=== PATIENT | male | born 1935 | race Caucasian/White ===

== ENCOUNTER 2017-06-14 22:27 | Emergency (ER) | payer MEDICARE, MEDICAID ==
[~2017-06-14] VITALS: Ht 167.6 cm; Wt 77.5 kg
[~2017-06-14 22:27] MED LIST: ASPI-611 PO; BACL20TA PO; LISI-600 PO; MULT-1085 PO; OMEP20CA10 PO; PROP20TA6 PO; ROSU10TA PO; SITA100T11 PO; TRAM50TA2 PO
[2017-06-15 01:22] VITALS: BP 125/81
== END 2017-06-15 01:24 | disposition home or self-care (01) ==
LOC: ER 22:27
DX: T82.837A Hemorrhage due to cardiac prosthetic devices, implants and grafts, initial encounter (principal); I25.10 Atherosclerotic heart disease of native coronary artery without angina pectoris; I25.2 Old myocardial infarction; Z95.0 Presence of cardiac pacemaker; Z95.1 Presence of aortocoronary bypass graft; Z79.899 Other long term (current) drug therapy
CPT/HCPCS: 93005; 99283; A4565; A6255; A6449

== ENCOUNTER 2017-07-23 12:51 | Observation (INO) | payer MEDICARE, MEDICAID ==
[~2017-07-23] VITALS: Ht 167.6 cm; Wt 84.0 kg
[2017-07-23 14:10] LABS: BASOPHILS % (AUTO) 0.6 % (0-1); EOSINOPHILS # (AUTO) 0.2 X10'3 (0-0.9); EOSINOPHILS % (AUTO) 3.1 % (0-6); HEMOGLOBIN 7.6 g/dl (14.0-17.9); LYMPHOCYTES % (AUTO) 14.5 % (21-51); MEAN CORPUSCULAR HEMOGLOBIN 30.9 PG (27.0-31.0); MEAN CORPUSCULAR HGB CONC 34.7 % (33.0-36.5); MEAN PLATELET VOLUME 7.6 FL (7.4-10.4); MONOCYTES # (AUTO) 0.4 X10'3 (0-0.9); MONOCYTES % (AUTO) 6.2 % (2-12); NEUTROPHILS # (AUTO) 5.2 X10'3 (1.8-7.7); NEUTROPHILS % (AUTO) 75.6 % (42-75); PLATELET COUNT 220 X10'3 (140-440); RED BLOOD COUNT 2.45 X10'6 (4.70-6.10); RED CELL DISTRIBUTION WIDTH 15.3 % (11.5-14.5); WHITE BLOOD COUNT 6.9 X10'3 (4.5-11.0)
[2017-07-23 14:14] LABS: HEMATOCRIT 21.8 % (42.0-52.0)
[2017-07-23 14:20] LABS: INR 1.2 INR; PARTIAL THROMBOPLASTIN TIME 29 SECONDS (22-32)
[2017-07-23 14:25] LABS: ALANINE AMINOTRANSFERASE 29 U/L (12-78); ALBUMIN 3.1 G/DL (3.4-5.0); ALBUMIN/GLOBULIN RATIO 0.8 (1.1-1.5); ALKALINE PHOSPHATASE 170 IU/L (46-116); ANION GAP 16 (8-16); ASPARTATE AMINO TRANSFERASE 62 U/L (10-37); BILIRUBIN,TOTAL 0.4 MG/DL (0.1-1.0); BLOOD UREA NITROGEN 73 MG/DL (7-18); BUN/CREATININE RATIO 29.8 (5.4-32.0); CALCIUM 9.6 MG/DL (8.5-10.1); CHLORIDE 111 MMOL/L (99-107); CREATININE 2.45 MG/DL (0.60-1.10); GLUCOSE 140 MG/DL (70-104); POTASSIUM 3.9 MMOL/L (3.5-5.1); SODIUM 147 MMOL/L (135-145); TOTAL CARBON DIOXIDE 20.2 MMOL/L (24-32); TOTAL PROTEIN 7.2 G/DL (6.4-8.2); eGFR 25 ML/MIN
[2017-07-23] MEDS ORDERED: ondansetron/PF 4mg/2ml inj IV PRN (15:45)
[2017-07-23] MEDS ORDERED: magnesium hydroxide 30ml (MOM) UD suspension PO PRN ×2 (15:45→16:30)
[2017-07-23] MEDS ORDERED: acetaminophen 325mg tablet PO PRN ×2 (15:45→16:30)
[2017-07-23] MEDS ORDERED: mag hydrox/Alum hydrox/simeth 30ml oral suspension PO PRN ×2 (15:45→16:30)
[2017-07-23] MEDS ORDERED: PEG 3350/Na sulf,bicarb,Cl/KCl oral sol 4 liter bottle PO ONE ×2 (16:35→18:25)
[2017-07-23 17:21] LABS: OCCULT BLOOD STOOL POSITIVE (Neg)
[2017-07-23] MEDS: PEG 3350/Na sulf,bicarb,Cl/KCl oral sol 4 liter bottle PO SCH (19:05)
[2017-07-23] MEDS: normal saline 1000ml 1,000 ML IV SCH ×2 (19:06→23:10)
[2017-07-23] MEDS ORDERED: PROP10TA10 PO (20:21)
[2017-07-23] MEDS: pantoprazole 40 MG vial IV SCH (20:56)
[2017-07-23] MEDS: traMADol 50MG tablet PO SCH (20:57)
[2017-07-23 22:45] VITALS: BP 155/75
[2017-07-23] MEDS: propranolol 10mg tablet PO SCH (22:52)
[2017-07-24] VITALS (13 sets, daily range): BP systolic 137–184; BP diastolic 48–93
[2017-07-24] MEDS: ondansetron/PF 4mg/2ml inj IV PRN ×2 (04:46→16:18)
[2017-07-24] MEDS: normal saline 1000ml 1,000 ML IV SCH ×3 (04:46→21:55)
[2017-07-24 06:00] LABS: BASOPHILS % (AUTO) 0.2 % (0-1); EOSINOPHILS # (AUTO) 0.1 X10'3 (0-0.9); LYMPHOCYTES # (AUTO) 0.7 X10'3 (1.1-4.8); LYMPHOCYTES % (AUTO) 11.1 % (21-51); MEAN CORPUSCULAR HEMOGLOBIN 31.1 PG (27.0-31.0); MEAN CORPUSCULAR HGB CONC 34.2 % (33.0-36.5); MEAN CORPUSCULAR VOLUME 90.8 FL (78-98); MEAN PLATELET VOLUME 7.1 FL (7.4-10.4); MONOCYTES # (AUTO) 0.3 X10'3 (0-0.9); MONOCYTES % (AUTO) 5.7 % (2-12); NEUTROPHILS # (AUTO) 4.8 X10'3 (1.8-7.7); PLATELET COUNT 166 X10'3 (140-440); RED BLOOD COUNT 2.07 X10'6 (4.70-6.10); RED CELL DISTRIBUTION WIDTH 15.5 % (11.5-14.5); WHITE BLOOD COUNT 5.9 X10'3 (4.5-11.0)
[2017-07-24 06:15] LABS: HEMATOCRIT 18.8 % (42.0-52.0); HEMOGLOBIN 6.4 g/dl (14.0-17.9)
[2017-07-24 06:19] LABS: ALBUMIN 2.6 G/DL (3.4-5.0); ANION GAP 17 (8-16); BLOOD UREA NITROGEN 61 MG/DL (7-18); BUN/CREATININE RATIO 32.4 (5.4-32.0); CHLORIDE 113 MMOL/L (99-107); CREATININE 1.88 MG/DL (0.60-1.10); GLUCOSE 158 MG/DL (70-104); POTASSIUM 3.7 MMOL/L (3.5-5.1); SODIUM 148 MMOL/L (135-145); TOTAL CARBON DIOXIDE 18.5 MMOL/L (24-32); eGFR 35 ML/MIN
[2017-07-24] MEDS ORDERED: pantoprazole 40mg Tablet.DR PO SCH (08:00)
[2017-07-24] MEDS: aspirin 81mg tablet.DR PO SCH (08:00)
[2017-07-24] MEDS ORDERED: PROPRANOLOL HCL PO SCH (08:00)
[2017-07-24] MEDS: lisinopril 20mg tablet PO SCH (08:10)
[2017-07-24] MEDS: traMADol 50MG tablet PO SCH ×2 (08:10→20:11)
[2017-07-24] MEDS: pantoprazole 40 MG vial IV SCH ×2 (08:10→20:11)
[2017-07-24] MEDS: propranolol 10mg tablet PO SCH ×3 (08:11→20:11)
[2017-07-24] MEDS: atorvastatin 20mg tablet PO SCH (08:11)
[2017-07-24] MEDS: PEG 3350/Na sulf,bicarb,Cl/KCl oral sol 4 liter bottle PO SCH (08:13)
[2017-07-24] MEDS: baclofen 10mg tablet PO SCH (08:13)
[2017-07-24] MEDS: multivitamins, therapeutics tablet PO SCH (08:13)
[2017-07-24] MEDS ORDERED: RANI300T4 (08:40)
[2017-07-24] MEDS ORDERED: OMEP-50 (08:40)
[2017-07-24] MEDS ORDERED: FURO20TA4 (08:42)
[2017-07-24] MEDS ORDERED: OFLO5DRO3 (08:42)
[2017-07-24] MEDS ORDERED: AZEL205. (08:42)
[2017-07-24] MEDS ORDERED: normal saline 1000ml 1,000 ML IV SCH (12:18)
[2017-07-24] MEDS ORDERED: simethicone 40mg/0.6ml oral drops 30ml MC ONE (12:20)
[2017-07-24] MEDS ORDERED: fentaNYL/PF 50MCG/1 ML 2ML syringe IV PRN (12:20)
[2017-07-24] MEDS ORDERED: MIDAZolam 5mg/5ml vial IV PRN (12:20)
[2017-07-24] MEDS ORDERED: fentaNYL/PF 50MCG/1 ML 2ML syringe ONE (14:17)
[2017-07-24] MEDS ORDERED: MIDAZolam 5mg/5ml vial ONE (14:17)
[2017-07-24] MEDS ORDERED: LIDOcaine Viscous 15ml cup ONE (15:29)
[2017-07-24] MEDS ORDERED: ondansetron/PF 4mg/2ml inj ONE (16:13)
[2017-07-24 18:58] LABS: % IRON SATURATION 29 % (11-46); IRON 64 UG/DL (53-167); TOTAL IRON BINDING CAPACITY 222 UG/DL (259-388)
[2017-07-25] VITALS: BP 121/49
[2017-07-25 05:29] LABS: BASOPHILS % (AUTO) 0.2 % (0-1); EOSINOPHILS # (AUTO) 0.1 X10'3 (0-0.9); EOSINOPHILS % (AUTO) 1.2 % (0-6); LYMPHOCYTES # (AUTO) 0.7 X10'3 (1.1-4.8); MEAN CORPUSCULAR HEMOGLOBIN 30.6 PG (27.0-31.0); MEAN CORPUSCULAR HGB CONC 34.2 % (33.0-36.5); MEAN CORPUSCULAR VOLUME 89.5 FL (78-98); MEAN PLATELET VOLUME 7.3 FL (7.4-10.4); MONOCYTES # (AUTO) 0.4 X10'3 (0-0.9); MONOCYTES % (AUTO) 7.4 % (2-12); NEUTROPHILS % (AUTO) 78.2 % (42-75); PLATELET COUNT 135 X10'3 (140-440); RED BLOOD COUNT 1.96 X10'6 (4.70-6.10); RED CELL DISTRIBUTION WIDTH 15.3 % (11.5-14.5); WHITE BLOOD COUNT 5.1 X10'3 (4.5-11.0)
[2017-07-25 05:49] LABS: ALBUMIN 2.5 G/DL (3.4-5.0); ANION GAP 14 (8-16); BLOOD UREA NITROGEN 51 MG/DL (7-18); BUN/CREATININE RATIO 29.7 (5.4-32.0); CALCIUM 8.5 MG/DL (8.5-10.1); CHLORIDE 114 MMOL/L (99-107); CREATININE 1.72 MG/DL (0.60-1.10); GLUCOSE 118 MG/DL (70-104); POTASSIUM 3.4 MMOL/L (3.5-5.1); SODIUM 148 MMOL/L (135-145); TOTAL CARBON DIOXIDE 19.8 MMOL/L (24-32); eGFR 38 ML/MIN
[2017-07-25 05:50] LABS: HEMATOCRIT 17.5 % (42.0-52.0)
[2017-07-25 07:00] VITALS: BP 144/61
[2017-07-25 08:00] VITALS: BP_SYST 120; BP_SYST 129; BP_SYST 144; BP_DIAS 55; BP_DIAS 57; BP_DIAS 61
[2017-07-25] MEDS: aspirin 81mg tablet.DR PO SCH (08:00)
[2017-07-25] MEDS: pantoprazole 40 MG vial IV SCH (08:34)
[2017-07-25] MEDS: baclofen 10mg tablet PO SCH (08:37)
[2017-07-25] MEDS: lisinopril 20mg tablet PO SCH (08:37)
[2017-07-25] MEDS: multivitamins, therapeutics tablet PO SCH (08:38)
[2017-07-25] MEDS: atorvastatin 20mg tablet PO SCH (08:38)
[2017-07-25] MEDS: traMADol 50MG tablet PO SCH (08:38)
[2017-07-25] MEDS: propranolol 10mg tablet PO SCH ×2 (08:40→13:00)
[2017-07-25] MEDS: normal saline 1000ml 1,000 ML IV SCH (08:45)
[2017-07-25 12:00] VITALS: BP 129/55
[2017-07-25] MEDS ORDERED: epoetin 20,000 units/ml inj SQ ONE (12:30)
[2017-07-25] MEDS ORDERED: EPOE10003 SQ (15:06)
[2017-07-25] MEDS ORDERED: FERR324T7 PO (15:06)
[2017-07-25] MEDS ORDERED: PANT-47 PO (15:06)
== END 2017-07-25 16:17 | disposition home or self-care (01) ==
LOC: ER 12:52 → ED HOLD 15:45 → SUR 3N 22:20
PROVIDERS: ADMIT Internal Medicine; ATTEND Internal Medicine
DX: K92.2 Gastrointestinal hemorrhage, unspecified (principal); D64.9 Anemia, unspecified; D50.0 Iron deficiency anemia secondary to blood loss (chronic); E78.5 Hyperlipidemia, unspecified; E86.0 Dehydration; I12.9 Hypertensive chronic kidney disease with stage 1 through stage 4 chronic kidney disease, or unspecified chronic kidney disease; E11.22 Type 2 diabetes mellitus with diabetic chronic kidney disease; N18.3 Chronic kidney disease, stage 3 (moderate); N17.9 Acute kidney failure, unspecified; I25.10 Atherosclerotic heart disease of native coronary artery without angina pectoris; I25.2 Old myocardial infarction; K63.5 Polyp of colon; K44.9 Diaphragmatic hernia without obstruction or gangrene; Z95.0 Presence of cardiac pacemaker; Z95.1 Presence of aortocoronary bypass graft; Z85.038 Personal history of other malignant neoplasm of large intestine; Z79.82 Long term (current) use of aspirin
CPT/HCPCS: 36415; 43255; 45378; 80048; 80053; 82272; 83036; 83540; 83550; 85025; 85610; 85730; 87070; 96372; 96374; 96375; 96376; 99285; C9113; G0378; J0885; J2250; J2405; J3010; J7030; 45382; A4620; G0500

== ENCOUNTER 2017-07-27 14:31 | Emergency (ER) | payer MEDICARE, MEDICAID ==
[~2017-07-27] VITALS: Ht 182.9 cm; Wt 90.0 kg
[~2017-07-27 14:31] MED LIST changes: -ASPI-611 PO; +EPOE10003 SQ; +FERR324T7 PO; -OMEP20CA10 PO; +PANT-47 PO; +PROP10TA10 PO; -PROP20TA6 PO; -SITA100T11 PO; -TRAM50TA2 PO
[2017-07-27 15:21] LABS: BASOPHILS % (AUTO) 0.3 % (0-1); EOSINOPHILS # (AUTO) 0.2 X10'3 (0-0.9); EOSINOPHILS % (AUTO) 2.6 % (0-6); LYMPHOCYTES # (AUTO) 0.7 X10'3 (1.1-4.8); LYMPHOCYTES % (AUTO) 11.7 % (21-51); MEAN CORPUSCULAR HEMOGLOBIN 28.5 PG (27.0-31.0); MEAN CORPUSCULAR HGB CONC 33.4 % (33.0-36.5); MEAN CORPUSCULAR VOLUME 85.5 FL (78-98); MEAN PLATELET VOLUME 7.3 FL (7.4-10.4); MONOCYTES # (AUTO) 0.4 X10'3 (0-0.9); NEUTROPHILS # (AUTO) 4.8 X10'3 (1.8-7.7); NEUTROPHILS % (AUTO) 78.4 % (42-75); PLATELET COUNT 154 X10'3 (140-440); RED CELL DISTRIBUTION WIDTH 16.1 % (11.5-14.5); WHITE BLOOD COUNT 6.2 X10'3 (4.5-11.0)
[2017-07-27 15:23] LABS: HEMATOCRIT 20.5 % (42.0-52.0); HEMOGLOBIN 6.9 g/dl (14.0-17.9)
[2017-07-27] MEDS ORDERED: epoetin 20,000 units/ml inj SQ ONE (16:00)
[2017-07-27 17:18] VITALS: BP 144/73
[2017-07-27 17:54] LABS: OCCULT BLOOD STOOL NEGATIVE (Neg)
== END 2017-07-27 17:28 | disposition home or self-care (01) ==
LOC: ER 14:31
DX: D64.9 Anemia, unspecified (principal); I25.10 Atherosclerotic heart disease of native coronary artery without angina pectoris; I25.2 Old myocardial infarction; N18.9 Chronic kidney disease, unspecified; Z95.1 Presence of aortocoronary bypass graft; Z95.0 Presence of cardiac pacemaker; Z79.899 Other long term (current) drug therapy
CPT/HCPCS: 36415; 82272; 85025; 96372; 99284; J0885

== ENCOUNTER 2017-07-29 16:09 | Emergency (ER) | payer MEDICARE, MEDICAID ==
[~2017-07-29] VITALS: Ht 167.6 cm; Wt 85.2 kg
[2017-07-29 16:12] VITALS: BP 146/68
[2017-07-29] MEDS ORDERED: epoetin 20,000 units/ml inj SQ ONE (16:20)
== END 2017-07-29 17:15 | disposition home or self-care (01) ==
LOC: ER 16:10
DX: Z23 Encounter for immunization (principal); I25.10 Atherosclerotic heart disease of native coronary artery without angina pectoris; I25.2 Old myocardial infarction; N18.9 Chronic kidney disease, unspecified; Z95.1 Presence of aortocoronary bypass graft; Z95.0 Presence of cardiac pacemaker; Z79.899 Other long term (current) drug therapy; Z85.038 Personal history of other malignant neoplasm of large intestine
CPT/HCPCS: 96372; 99283; J0885

== ENCOUNTER 2017-08-23 17:49 | Inpatient (IN) | payer MEDICARE, MEDICAID ==
[~2017-08-23] VITALS: Ht 172.7 cm; Wt 79.5 kg
[2017-08-23 19:25] LABS: BASOPHILS % (AUTO) 0.2 % (0-1); EOSINOPHILS % (AUTO) 0.6 % (0-6); LYMPHOCYTES # (AUTO) 0.5 X10'3 (1.1-4.8); LYMPHOCYTES % (AUTO) 10.6 % (21-51); MEAN CORPUSCULAR HEMOGLOBIN 28.3 PG (27.0-31.0); MEAN CORPUSCULAR HGB CONC 32.9 % (33.0-36.5); MEAN PLATELET VOLUME 7.3 FL (7.4-10.4); MONOCYTES # (AUTO) 0.4 X10'3 (0-0.9); MONOCYTES % (AUTO) 8.1 % (2-12); NEUTROPHILS # (AUTO) 3.5 X10'3 (1.8-7.7); NEUTROPHILS % (AUTO) 80.5 % (42-75); PLATELET COUNT 136 X10'3 (140-440); RED BLOOD COUNT 2.16 X10'6 (4.70-6.10); RED CELL DISTRIBUTION WIDTH 18.8 % (11.5-14.5); WHITE BLOOD COUNT 4.4 X10'3 (4.5-11.0)
[2017-08-23 19:31] LABS: HEMATOCRIT 18.6 % (42.0-52.0); HEMOGLOBIN 6.1 g/dl (14.0-17.9)
[2017-08-23 19:32] LABS: INR 1.3 INR; PROTHROMBIN TIME 13.3 SECONDS (9.0-12.0)
[2017-08-23 19:36] LABS: ALANINE AMINOTRANSFERASE 17 U/L (12-78); ALBUMIN 2.6 G/DL (3.4-5.0); ALBUMIN/GLOBULIN RATIO 0.7 (1.1-1.5); ALKALINE PHOSPHATASE 221 IU/L (46-116); ANION GAP 16 (8-16); ASPARTATE AMINO TRANSFERASE 95 U/L (10-37); BILIRUBIN,TOTAL 0.6 MG/DL (0.1-1.0); BLOOD UREA NITROGEN 48 MG/DL (7-18); BUN/CREATININE RATIO 22.3 (5.4-32.0); CALCIUM 8.9 MG/DL (8.5-10.1); CHLORIDE 103 MMOL/L (99-107); CREATININE 2.15 MG/DL (0.60-1.10); GLUCOSE 176 MG/DL (70-104); POTASSIUM 3.4 MMOL/L (3.5-5.1); SODIUM 141 MMOL/L (135-145); TOTAL PROTEIN 6.3 G/DL (6.4-8.2); eGFR 30 ML/MIN
[2017-08-23 20:06] LABS: CLARITY,URINE Clear (Clear); COLOR,URINE Yellow (Yellow); GLUCOSE, URINE Negative (Neg); KETONES,URINE Trace mg/dl (Neg); LEUKOCYTE ESTERASE ,URINE Negative (Neg); NITRITES, URINE Negative (Neg); OCCULT BLOOD,URINE Negative (Neg); PROTEIN,URINE 100 mg/dl (Neg); UROBILINOGEN,URINE 0.2 E.U/dL (0.2-1.0)
[2017-08-23 20:11] LABS: UA COLLECTION TYPE CLN CATCH MIDSTREAM
[2017-08-23 20:20] LABS: BACTERIA,URINE NONE SEEN /HPF (Neg); RBC,URINE NONE SEEN /HPF (0-2); SQUAMOUS EPITHELIAL CELL,UR FEW /LPF (FEW); WBC,URINE NONE SEEN /HPF (0-4)
[2017-08-23 22:13] LABS: PLATELET ESTIMATE DECREASED
[2017-08-23 22:14] LABS: ANISOCYTOSIS 2+
[2017-08-23 22:18] LABS: POIKILOCYTOSIS FEW
[2017-08-23 22:19] LABS: POLYCHROMASIA FEW
[2017-08-23] MEDS ORDERED: ondansetron/PF 4mg/2ml inj IV ONE (22:25)
[2017-08-23] MEDS ORDERED: ASPI-611 PO (22:27)
[2017-08-23] MEDS ORDERED: OMEP20CA10 PO (22:27)
[2017-08-23] MEDS ORDERED: FURO-150 PO (22:27)
[2017-08-23] MEDS ORDERED: RANI300C PO (22:27)
[2017-08-23] MEDS ORDERED: PROP40TA72 PO (22:27)
[2017-08-23] MEDS ORDERED: ondansetron/PF 4mg/2ml inj IV PRN (23:50)
[2017-08-23] MEDS ORDERED: bisacodyl 10mg suppository rectal RC PRN (23:50)
[2017-08-23] MEDS ORDERED: acetaminophen 325mg tablet PO PRN (23:50)
[2017-08-24] VITALS (12 sets, daily range): BP systolic 116–145; BP diastolic 49–77
[2017-08-24] MEDS: propranolol 40mg tablet PO SCH ×3 (01:00→20:54)
[2017-08-24] MEDS: normal saline 1000ml 1,000 ML IV SCH ×2 (02:16→17:48)
[2017-08-24] MEDS: pantoprazole 40MG/NS 100ML BAG 100 ML IV SCH ×5 (02:16→22:26)
[2017-08-24 05:13] LABS: ALANINE AMINOTRANSFERASE 16 U/L (12-78); ALBUMIN 2.4 G/DL (3.4-5.0); ALBUMIN/GLOBULIN RATIO 0.6 (1.1-1.5); ALKALINE PHOSPHATASE 200 IU/L (46-116); ANION GAP 15 (8-16); ASPARTATE AMINO TRANSFERASE 74 U/L (10-37); BILIRUBIN,TOTAL 0.5 MG/DL (0.1-1.0); BLOOD UREA NITROGEN 42 MG/DL (7-18); BUN/CREATININE RATIO 23.3 (5.4-32.0); CALCIUM 8.9 MG/DL (8.5-10.1); CHLORIDE 105 MMOL/L (99-107); GLUCOSE 142 MG/DL (70-104); MAGNESIUM 1.6 MG/DL (1.5-2.4); POTASSIUM 3.2 MMOL/L (3.5-5.1); SODIUM 143 MMOL/L (135-145); TOTAL CARBON DIOXIDE 23.4 MMOL/L (24-32); TOTAL PROTEIN 6.1 G/DL (6.4-8.2); eGFR 36 ML/MIN
[2017-08-24 05:34] LABS: BASOPHILS % (AUTO) 0.1 % (0-1); EOSINOPHILS % (AUTO) 0.3 % (0-6); LYMPHOCYTES # (AUTO) 0.5 X10'3 (1.1-4.8); LYMPHOCYTES % (AUTO) 10.5 % (21-51); MEAN CORPUSCULAR HEMOGLOBIN 28.1 PG (27.0-31.0); MEAN CORPUSCULAR HGB CONC 32.9 % (33.0-36.5); MEAN CORPUSCULAR VOLUME 85.6 FL (78-98); MEAN PLATELET VOLUME 7.8 FL (7.4-10.4); MONOCYTES # (AUTO) 0.3 X10'3 (0-0.9); MONOCYTES % (AUTO) 7.7 % (2-12); NEUTROPHILS # (AUTO) 3.5 X10'3 (1.8-7.7); NEUTROPHILS % (AUTO) 81.4 % (42-75); PLATELET COUNT 143 X10'3 (140-440); RED BLOOD COUNT 2.19 X10'6 (4.70-6.10); RED CELL DISTRIBUTION WIDTH 18.1 % (11.5-14.5); WHITE BLOOD COUNT 4.3 X10'3 (4.5-11.0)
[2017-08-24 05:40] LABS: HEMOGLOBIN 6.2 g/dl (14.0-17.9)
[2017-08-24 05:41] LABS: HEMATOCRIT 18.8 % (42.0-52.0)
[2017-08-24 06:56] LABS: OCCULT BLOOD STOOL POSITIVE (Neg)
[2017-08-24] MEDS: ferrous gluconate 324mg tablet PO SCH ×2 (07:38→11:34)
[2017-08-24] MEDS: baclofen 10mg tablet PO SCH (07:38)
[2017-08-24] MEDS: atorvastatin 20mg tablet PO SCH (07:39)
[2017-08-24] MEDS: lisinopril 20mg tablet PO SCH (07:40)
[2017-08-24] MEDS: docusate sod 100mg capsule PO SCH ×2 (07:40→20:54)
[2017-08-24] MEDS: multivitamins, therapeutics tablet PO SCH (07:41)
[2017-08-24] MEDS ORDERED: aspirin 81mg tablet.DR PO SCH (08:00)
[2017-08-24] MEDS ORDERED: propranolol 40mg tablet PO SCH (08:00)
[2017-08-24] MEDS ORDERED: furosemide 20MG tablet PO SCH (08:00)
[2017-08-24] MEDS ORDERED: potassium Cl 20mEq in NS 1,000 ML IV SCH (08:23)
[2017-08-24] MEDS ORDERED: potassium Cl 20 mEq SR tablet PO PRN (08:25)
[2017-08-24] MEDS ORDERED: potassium Cl 40MEQ/NS 500ml 500 ML IV PRN ×2 (08:25)
[2017-08-24] MEDS: K and/or MAG REPLACEMENT MC SCH (08:25)
[2017-08-24] MEDS ORDERED: Potassium Cl inj 20 MEQ in normal saline 1000ml 990 ML IV SCH (08:30)
[2017-08-24] MEDS: potassium Cl 20 mEq SR tablet PO PRN ×3 (08:36→17:47)
[2017-08-24 09:05] LABS: LIPASE 88 U/L (73-393)
[2017-08-24 09:13] LABS: TOTAL CELLS COUNTED 100
[2017-08-24 09:14] LABS: ANISOCYTOSIS 2+; PLATELET ESTIMATE NORMAL
[2017-08-24] MEDS ORDERED: LIDOcaine Viscous 15ml cup ONE (09:48)
[2017-08-24] MEDS ORDERED: fentaNYL/PF 50MCG/1 ML 2ML syringe ONE (09:48)
[2017-08-24] MEDS ORDERED: MIDAZolam 5mg/5ml vial ONE (09:48)
[2017-08-24] MEDS ORDERED: iron dextran complex inj. 100 MG in normal saline 100ml IV soln 98 ML IV SCH (12:50)
[2017-08-24] MEDS ORDERED: epoetin 20,000 units/ml inj SQ ONE (12:55)
[2017-08-24] MEDS ORDERED: cyanocobalamin 1,000 mcg/ml inj IM ONE (13:00)
[2017-08-24 13:48] LABS: BASOPHILS % (AUTO) 0.2 % (0-1); EOSINOPHILS # (AUTO) 0.1 X10'3 (0-0.9); EOSINOPHILS % (AUTO) 1.9 % (0-6); LYMPHOCYTES # (AUTO) 0.5 X10'3 (1.1-4.8); LYMPHOCYTES % (AUTO) 11.1 % (21-51); MEAN CORPUSCULAR HEMOGLOBIN 31.3 PG (27.0-31.0); MEAN CORPUSCULAR HGB CONC 34.9 % (33.0-36.5); MEAN CORPUSCULAR VOLUME 89.4 FL (78-98); MEAN PLATELET VOLUME 7.6 FL (7.4-10.4); MONOCYTES # (AUTO) 0.3 X10'3 (0-0.9); MONOCYTES % (AUTO) 7.5 % (2-12); NEUTROPHILS # (AUTO) 3.5 X10'3 (1.8-7.7); NEUTROPHILS % (AUTO) 79.3 % (42-75); PLATELET COUNT 162 X10'3 (140-440); RED BLOOD COUNT 2.06 X10'6 (4.70-6.10); RED CELL DISTRIBUTION WIDTH 19.1 % (11.5-14.5); WHITE BLOOD COUNT 4.4 X10'3 (4.5-11.0)
[2017-08-24] MEDS: folic acid 1mg/0.2ml inj IV SCH (13:54)
[2017-08-24 13:56] LABS: HEMATOCRIT 18.4 % (42.0-52.0); HEMOGLOBIN 6.4 g/dl (14.0-17.9)
[2017-08-24] MEDS: sodium ferric gluc complex inj 125 MG in normal saline 100ml IV soln 100 ML IV SCH (14:17)
[2017-08-24] MEDS: magnesium oxide 400mg tablet PO SCH (17:47)
[2017-08-24] MEDS ORDERED: temazepam 15mg capsule PO ONE (23:25)
[2017-08-25] VITALS: BP 150/73
[2017-08-25] MEDS: magnesium oxide 400mg tablet PO SCH ×3 (00:59→16:57)
[2017-08-25] MEDS: pantoprazole 40MG/NS 100ML BAG 100 ML IV SCH ×4 (03:36→16:58)
[2017-08-25 04:00] VITALS: BP 99/51
[2017-08-25 06:38] LABS: ALANINE AMINOTRANSFERASE 21 U/L (12-78); ALBUMIN 2.4 G/DL (3.4-5.0); ALBUMIN/GLOBULIN RATIO 0.6 (1.1-1.5); ALKALINE PHOSPHATASE 186 IU/L (46-116); ANION GAP 14 (8-16); ASPARTATE AMINO TRANSFERASE 49 U/L (10-37); BILIRUBIN,TOTAL 0.4 MG/DL (0.1-1.0); BLOOD UREA NITROGEN 36 MG/DL (7-18); BUN/CREATININE RATIO 20.7 (5.4-32.0); CALCIUM 8.8 MG/DL (8.5-10.1); CHLORIDE 107 MMOL/L (99-107); CREATININE 1.74 MG/DL (0.60-1.10); GLUCOSE 131 MG/DL (70-104); MAGNESIUM 1.6 MG/DL (1.5-2.4); SODIUM 141 MMOL/L (135-145); TOTAL PROTEIN 6.2 G/DL (6.4-8.2); eGFR 38 ML/MIN
[2017-08-25 07:14] LABS: BASOPHILS % (AUTO) 0.4 % (0-1); EOSINOPHILS # (AUTO) 0.1 X10'3 (0-0.9); EOSINOPHILS % (AUTO) 1.7 % (0-6); LYMPHOCYTES # (AUTO) 0.5 X10'3 (1.1-4.8); LYMPHOCYTES % (AUTO) 13.4 % (21-51); MEAN CORPUSCULAR HGB CONC 33.4 % (33.0-36.5); MEAN PLATELET VOLUME 7.4 FL (7.4-10.4); MONOCYTES # (AUTO) 0.3 X10'3 (0-0.9); MONOCYTES % (AUTO) 8.7 % (2-12); NEUTROPHILS # (AUTO) 2.7 X10'3 (1.8-7.7); NEUTROPHILS % (AUTO) 75.8 % (42-75); PLATELET COUNT 136 X10'3 (140-440); RED BLOOD COUNT 1.95 X10'6 (4.70-6.10); RED CELL DISTRIBUTION WIDTH 18.7 % (11.5-14.5); WHITE BLOOD COUNT 3.6 X10'3 (4.5-11.0)
[2017-08-25 07:24] LABS: HEMATOCRIT 16.4 % (42.0-52.0); HEMOGLOBIN 5.5 g/dl (14.0-17.9)
[2017-08-25] MEDS: lisinopril 20mg tablet PO SCH (07:47)
[2017-08-25] MEDS: baclofen 10mg tablet PO SCH (07:48)
[2017-08-25] MEDS: docusate sod 100mg capsule PO SCH ×2 (07:48→19:52)
[2017-08-25] MEDS: atorvastatin 20mg tablet PO SCH (07:48)
[2017-08-25] MEDS: multivitamins, therapeutics tablet PO SCH (07:48)
[2017-08-25] MEDS: propranolol 40mg tablet PO SCH ×2 (07:49→19:55)
[2017-08-25] MEDS: folic acid 1mg/0.2ml inj IV SCH (07:50)
[2017-08-25] MEDS ORDERED: normal saline 500ml IV soln 500 ML IV ONE (08:00)
[2017-08-25] MEDS: K and/or MAG REPLACEMENT MC SCH (08:00)
[2017-08-25 12:23] VITALS: BP 145/59
[2017-08-25] MEDS: sodium ferric gluc complex inj 125 MG in normal saline 100ml IV soln 100 ML IV SCH (12:42)
[2017-08-25 17:03] LABS: MEAN CORPUSCULAR HEMOGLOBIN 29.3 PG (27.0-31.0); MEAN CORPUSCULAR HGB CONC 33.7 % (33.0-36.5); MEAN PLATELET VOLUME 7.8 FL (7.4-10.4); PLATELET COUNT 154 X10'3 (140-440); RED BLOOD COUNT 2.07 X10'6 (4.70-6.10); RED CELL DISTRIBUTION WIDTH 18.9 % (11.5-14.5); WHITE BLOOD COUNT 4.6 X10'3 (4.5-11.0)
[2017-08-25 17:07] LABS: HEMOGLOBIN 6.1 g/dl (14.0-17.9)
[2017-08-25 18:11] LABS: CLARITY,URINE CLEAR (Clear); COLOR,URINE YELLOW (Yellow); GLUCOSE, URINE NEGATIVE (Neg); KETONES,URINE NEGATIVE (Neg); LEUKOCYTE ESTERASE ,URINE NEGATIVE (Neg); NITRITES, URINE NEGATIVE (Neg); OCCULT BLOOD,URINE NEGATIVE (Neg); PH,URINE 5.5 (4.8-8.0); PROTEIN,URINE TRACE mg/dl (Neg); UROBILINOGEN,URINE 0.2 E.U/dL (0.2-1.0)
[2017-08-25 18:13] LABS: UA COLLECTION TYPE CLN CATCH MIDSTREAM
[2017-08-25 19:14] LABS: BACTERIA,URINE NONE SEEN /HPF (Neg); MUCUS STRANDS MODERATE /LPF (Neg); RBC,URINE NONE SEEN /HPF (0-2); SQUAMOUS EPITHELIAL CELL,UR FEW /LPF (FEW); WBC,URINE 0-4 /HPF (0-4)
[2017-08-25] MEDS: normal saline 1000ml 1,000 ML IV SCH (19:52)
[2017-08-25 20:00] VITALS: BP 100/64
[2017-08-25] MEDS ORDERED: HYDROcodone/acetaminophen 5mg/325mg tablet PO ONE (22:05)
[2017-08-25] MEDS ORDERED: temazepam 15mg capsule PO ONE (23:45)
[2017-08-26] VITALS: BP 126/57
[2017-08-26] MEDS: magnesium oxide 400mg tablet PO SCH ×4 (00:25→20:52)
[2017-08-26] MEDS: pantoprazole 40MG/NS 100ML BAG 100 ML IV SCH ×6 (00:29→20:46)
[2017-08-26] MEDS: normal saline 1000ml 1,000 ML IV SCH ×3 (00:30→23:20)
[2017-08-26 07:10] LABS: BASOPHILS % (AUTO) 0.4 % (0-1); EOSINOPHILS # (AUTO) 0.1 X10'3 (0-0.9); EOSINOPHILS % (AUTO) 2.9 % (0-6); LYMPHOCYTES # (AUTO) 0.6 X10'3 (1.1-4.8); LYMPHOCYTES % (AUTO) 14.4 % (21-51); MEAN CORPUSCULAR HEMOGLOBIN 29.5 PG (27.0-31.0); MEAN CORPUSCULAR HGB CONC 33.5 % (33.0-36.5); MEAN CORPUSCULAR VOLUME 88.2 FL (78-98); MEAN PLATELET VOLUME 7.5 FL (7.4-10.4); MONOCYTES # (AUTO) 0.3 X10'3 (0-0.9); MONOCYTES % (AUTO) 7.4 % (2-12); NEUTROPHILS % (AUTO) 74.9 % (42-75); PLATELET COUNT 145 X10'3 (140-440); RED BLOOD COUNT 1.75 X10'6 (4.70-6.10); RED CELL DISTRIBUTION WIDTH 19.6 % (11.5-14.5)
[2017-08-26 07:22] LABS: HEMATOCRIT 15.4 % (42.0-52.0); HEMOGLOBIN 5.2 g/dl (14.0-17.9)
[2017-08-26 07:37] LABS: ALANINE AMINOTRANSFERASE 23 U/L (12-78); ALBUMIN 2.1 G/DL (3.4-5.0); ALBUMIN/GLOBULIN RATIO 0.7 (1.1-1.5); ALKALINE PHOSPHATASE 161 IU/L (46-116); ANION GAP 12 (8-16); ASPARTATE AMINO TRANSFERASE 45 U/L (10-37); BILIRUBIN,TOTAL 0.5 MG/DL (0.1-1.0); BLOOD UREA NITROGEN 34 MG/DL (7-18); BUN/CREATININE RATIO 18.9 (5.4-32.0); CALCIUM 8.4 MG/DL (8.5-10.1); CHLORIDE 107 MMOL/L (99-107); GLUCOSE 128 MG/DL (70-104); MAGNESIUM 1.4 MG/DL (1.5-2.4); POTASSIUM 4.1 MMOL/L (3.5-5.1); SODIUM 141 MMOL/L (135-145); TOTAL CARBON DIOXIDE 21.6 MMOL/L (24-32); TOTAL PROTEIN 5.3 G/DL (6.4-8.2); eGFR 36 ML/MIN
[2017-08-26] MEDS: K and/or MAG REPLACEMENT MC SCH (08:00)
[2017-08-26 08:04] VITALS: BP 150/73
[2017-08-26] MEDS: docusate sod 100mg capsule PO SCH ×2 (08:10→20:52)
[2017-08-26] MEDS: propranolol 40mg tablet PO SCH ×2 (08:10→20:52)
[2017-08-26] MEDS: baclofen 10mg tablet PO SCH (08:10)
[2017-08-26] MEDS: atorvastatin 20mg tablet PO SCH (08:10)
[2017-08-26] MEDS: lisinopril 20mg tablet PO SCH (08:10)
[2017-08-26] MEDS: folic acid 1mg/0.2ml inj IV SCH (08:10)
[2017-08-26] MEDS: multivitamins, therapeutics tablet PO SCH (08:10)
[2017-08-26] MEDS: sodium ferric gluc complex inj 125 MG in normal saline 100ml IV soln 100 ML IV SCH (08:43)
[2017-08-26] MEDS ORDERED: magnesium Cl slow-release 64mg tablet PO PRN (11:05)
[2017-08-26] MEDS ORDERED: magnesium 4gm in 100ml NS 100 ML IV PRN (11:05)
[2017-08-26] MEDS: magnesium/D5W IVPB 50 ML IV PRN ×2 (14:27→16:35)
[2017-08-26 15:55] VITALS: BP 123/69
[2017-08-26 19:30] VITALS: BP 136/65
[2017-08-26] MEDS ORDERED: temazepam 15mg capsule PO ONE (21:15)
[2017-08-26] MEDS ORDERED: HYDROcodone/acetaminophen 5mg/325mg tablet PO ONE (21:15)
[2017-08-26 23:00] VITALS: BP 134/74
[2017-08-27] MEDS: magnesium oxide 400mg tablet PO SCH ×5 (01:47→20:00)
[2017-08-27] MEDS: pantoprazole 40MG/NS 100ML BAG 100 ML IV SCH ×5 (01:59→21:33)
[2017-08-27] MEDS: normal saline 1000ml 1,000 ML IV SCH ×2 (05:40→21:29)
[2017-08-27 06:34] LABS: ALANINE AMINOTRANSFERASE 27 U/L (12-78); ALBUMIN 2.2 G/DL (3.4-5.0); ALBUMIN/GLOBULIN RATIO 0.7 (1.1-1.5); ALKALINE PHOSPHATASE 164 IU/L (46-116); ANION GAP 13 (8-16); ASPARTATE AMINO TRANSFERASE 76 U/L (10-37); BILIRUBIN,TOTAL 0.5 MG/DL (0.1-1.0); BLOOD UREA NITROGEN 32 MG/DL (7-18); BUN/CREATININE RATIO 20.3 (5.4-32.0); CALCIUM 8.3 MG/DL (8.5-10.1); CHLORIDE 107 MMOL/L (99-107); CREATININE 1.58 MG/DL (0.60-1.10); GLUCOSE 126 MG/DL (70-104); MAGNESIUM 2.7 MG/DL (1.5-2.4); POTASSIUM 4.4 MMOL/L (3.5-5.1); SODIUM 140 MMOL/L (135-145); TOTAL CARBON DIOXIDE 19.7 MMOL/L (24-32); TOTAL PROTEIN 5.4 G/DL (6.4-8.2); eGFR 42 ML/MIN
[2017-08-27 07:00] VITALS: BP 132/65
[2017-08-27 07:21] LABS: BASOPHILS % (AUTO) 0.3 % (0-1); EOSINOPHILS # (AUTO) 0.1 X10'3 (0-0.9); EOSINOPHILS % (AUTO) 2.9 % (0-6); LYMPHOCYTES # (AUTO) 0.6 X10'3 (1.1-4.8); MEAN CORPUSCULAR HEMOGLOBIN 28.3 PG (27.0-31.0); MEAN CORPUSCULAR HGB CONC 32.9 % (33.0-36.5); MEAN CORPUSCULAR VOLUME 85.8 FL (78-98); MEAN PLATELET VOLUME 7.1 FL (7.4-10.4); MONOCYTES # (AUTO) 0.3 X10'3 (0-0.9); MONOCYTES % (AUTO) 7.1 % (2-12); NEUTROPHILS # (AUTO) 3.6 X10'3 (1.8-7.7); NEUTROPHILS % (AUTO) 77.7 % (42-75); PLATELET COUNT 157 X10'3 (140-440); RED BLOOD COUNT 1.99 X10'6 (4.70-6.10); RED CELL DISTRIBUTION WIDTH 18.8 % (11.5-14.5); WHITE BLOOD COUNT 4.6 X10'3 (4.5-11.0)
[2017-08-27 07:24] LABS: HEMATOCRIT 17.1 % (42.0-52.0); HEMOGLOBIN 5.6 g/dl (14.0-17.9)
[2017-08-27 07:38] LABS: ANISOCYTOSIS 2+; PLATELET ESTIMATE NORMAL; POLYCHROMASIA 1+
[2017-08-27 07:39] LABS: ELLIPTOCYTES FEW; TEAR DROP CELLS FEW
[2017-08-27] MEDS: K and/or MAG REPLACEMENT MC SCH (08:00)
[2017-08-27] MEDS: propranolol 40mg tablet PO SCH ×2 (10:00→21:43)
[2017-08-27] MEDS: lisinopril 20mg tablet PO SCH (10:12)
[2017-08-27] MEDS: docusate sod 100mg capsule PO SCH ×2 (10:12→20:00)
[2017-08-27] MEDS: baclofen 10mg tablet PO SCH (10:12)
[2017-08-27] MEDS: atorvastatin 20mg tablet PO SCH (10:12)
[2017-08-27] MEDS: multivitamins, therapeutics tablet PO SCH (10:12)
[2017-08-27] MEDS: folic acid 1mg/0.2ml inj IV SCH (10:14)
[2017-08-27] MEDS ORDERED: magnesium hydroxide 30ml (MOM) UD suspension PO ONE (10:20)
[2017-08-27 11:00] VITALS: BP 115/52
[2017-08-27] MEDS: sodium ferric gluc complex inj 125 MG in normal saline 100ml IV soln 100 ML IV SCH (11:25)
[2017-08-27 19:00] VITALS: BP 144/68
[2017-08-27] MEDS: HYDROcodone/acetaminophen 5mg/325mg tablet PO PRN (21:43)
[2017-08-27] MEDS: temazepam 15mg capsule PO PRN (22:02)
[2017-08-28] VITALS: BP 103/46
[2017-08-28] MEDS: pantoprazole 40MG/NS 100ML BAG 100 ML IV SCH ×6 (01:00→22:41)
[2017-08-28] MEDS: normal saline 1000ml 1,000 ML IV SCH ×2 (04:12→17:28)
[2017-08-28 06:16] LABS: ALANINE AMINOTRANSFERASE 49 U/L (12-78); ALBUMIN 2.6 G/DL (3.4-5.0); ALBUMIN/GLOBULIN RATIO 0.7 (1.1-1.5); ALKALINE PHOSPHATASE 191 IU/L (46-116); ANION GAP 14 (8-16); ASPARTATE AMINO TRANSFERASE 98 U/L (10-37); BILIRUBIN,TOTAL 0.6 MG/DL (0.1-1.0); BLOOD UREA NITROGEN 35 MG/DL (7-18); BUN/CREATININE RATIO 21.1 (5.4-32.0); CALCIUM 8.9 MG/DL (8.5-10.1); CHLORIDE 107 MMOL/L (99-107); CREATININE 1.66 MG/DL (0.60-1.10); GLUCOSE 129 MG/DL (70-104); MAGNESIUM 2.6 MG/DL (1.5-2.4); POTASSIUM 4.6 MMOL/L (3.5-5.1); SODIUM 140 MMOL/L (135-145); TOTAL CARBON DIOXIDE 19.3 MMOL/L (24-32); TOTAL PROTEIN 6.2 G/DL (6.4-8.2); eGFR 40 ML/MIN
[2017-08-28] MEDS: magnesium oxide 400mg tablet PO SCH ×2 (07:22→20:00)
[2017-08-28] MEDS: K and/or MAG REPLACEMENT MC SCH (07:23)
[2017-08-28 07:36] VITALS: BP 136/69
[2017-08-28] MEDS: propranolol 40mg tablet PO SCH ×2 (07:40→20:15)
[2017-08-28] MEDS: baclofen 10mg tablet PO SCH (07:40)
[2017-08-28] MEDS: lisinopril 20mg tablet PO SCH (07:40)
[2017-08-28] MEDS: folic acid 1mg/0.2ml inj IV SCH (07:41)
[2017-08-28] MEDS: multivitamins, therapeutics tablet PO SCH (07:41)
[2017-08-28] MEDS: atorvastatin 20mg tablet PO SCH (07:42)
[2017-08-28] MEDS: docusate sod 100mg capsule PO SCH ×2 (07:45→20:00)
[2017-08-28 08:44] LABS: BASOPHILS % (AUTO) 0.5 % (0-1); EOSINOPHILS # (AUTO) 0.2 X10'3 (0-0.9); EOSINOPHILS % (AUTO) 3.3 % (0-6); LYMPHOCYTES # (AUTO) 0.6 X10'3 (1.1-4.8); LYMPHOCYTES % (AUTO) 10.3 % (21-51); MEAN CORPUSCULAR HEMOGLOBIN 32.2 PG (27.0-31.0); MEAN CORPUSCULAR HGB CONC 35.2 % (33.0-36.5); MEAN CORPUSCULAR VOLUME 91.6 FL (78-98); MEAN PLATELET VOLUME 7.6 FL (7.4-10.4); MONOCYTES # (AUTO) 0.4 X10'3 (0-0.9); MONOCYTES % (AUTO) 7.7 % (2-12); NEUTROPHILS # (AUTO) 4.6 X10'3 (1.8-7.7); NEUTROPHILS % (AUTO) 78.2 % (42-75); PLATELET COUNT 166 X10'3 (140-440); RED BLOOD COUNT 1.82 X10'6 (4.70-6.10); RED CELL DISTRIBUTION WIDTH 19.1 % (11.5-14.5); WHITE BLOOD COUNT 5.8 X10'3 (4.5-11.0)
[2017-08-28 08:57] LABS: HEMATOCRIT 16.6 % (42.0-52.0); HEMOGLOBIN 5.9 g/dl (14.0-17.9)
[2017-08-28] MEDS: sodium ferric gluc complex inj 125 MG in normal saline 100ml IV soln 100 ML IV SCH (09:03)
[2017-08-28 10:10] LABS: NUCLEATED RED BLOOD CELLS 4 /100WBC (0-0); PLATELET ESTIMATE NORMAL; TOTAL CELLS COUNTED 100
[2017-08-28 10:11] LABS: ANISOCYTOSIS 2+; ELLIPTOCYTES FEW; POLYCHROMASIA 2+; TEAR DROP CELLS FEW
[2017-08-28 10:14] LABS: POIKILOCYTOSIS 1+; SCHISTOCYTES 1+
[2017-08-28 10:16] LABS: SMUDGE CELLS 1+
[2017-08-28 11:58] VITALS: BP 140/63
[2017-08-28 19:00] VITALS: BP 165/77
[2017-08-28] MEDS: HYDROcodone/acetaminophen 5mg/325mg tablet PO PRN (20:21)
[2017-08-28] MEDS: temazepam 15mg capsule PO PRN (22:40)
[2017-08-29] VITALS: BP 121/57
[2017-08-29] MEDS: pantoprazole 40MG/NS 100ML BAG 100 ML IV SCH ×3 (04:07→08:57)
[2017-08-29 06:22] LABS: ERYTHROPOIETIN, SERUM 71.1 mIU/mL (2.6-18.5)
[2017-08-29 07:17] VITALS: BP 149/71
[2017-08-29] MEDS: magnesium oxide 400mg tablet PO SCH (08:00)
[2017-08-29] MEDS: K and/or MAG REPLACEMENT MC SCH (08:00)
[2017-08-29 08:02] LABS: ALANINE AMINOTRANSFERASE 71 U/L (12-78); ALBUMIN 2.4 G/DL (3.4-5.0); ALBUMIN/GLOBULIN RATIO 0.7 (1.1-1.5); ALKALINE PHOSPHATASE 186 IU/L (46-116); ANION GAP 13 (8-16); ASPARTATE AMINO TRANSFERASE 124 U/L (10-37); BILIRUBIN,TOTAL 0.7 MG/DL (0.1-1.0); BLOOD UREA NITROGEN 32 MG/DL (7-18); BUN/CREATININE RATIO 20.6 (5.4-32.0); CALCIUM 8.7 MG/DL (8.5-10.1); CHLORIDE 109 MMOL/L (99-107); CREATININE 1.55 MG/DL (0.60-1.10); GLUCOSE 126 MG/DL (70-104); POTASSIUM 4.7 MMOL/L (3.5-5.1); SODIUM 142 MMOL/L (135-145); TOTAL CARBON DIOXIDE 20.3 MMOL/L (24-32); TOTAL PROTEIN 5.9 G/DL (6.4-8.2); eGFR 43 ML/MIN
[2017-08-29] MEDS: normal saline 1000ml 1,000 ML IV SCH (08:09)
[2017-08-29] MEDS: atorvastatin 20mg tablet PO SCH (08:09)
[2017-08-29] MEDS: lisinopril 20mg tablet PO SCH (08:10)
[2017-08-29] MEDS: baclofen 10mg tablet PO SCH (08:10)
[2017-08-29] MEDS: docusate sod 100mg capsule PO SCH (08:10)
[2017-08-29] MEDS: multivitamins, therapeutics tablet PO SCH (08:10)
[2017-08-29 08:15] LABS: BASOPHILS % (AUTO) 0.4 % (0-1); EOSINOPHILS # (AUTO) 0.2 X10'3 (0-0.9); EOSINOPHILS % (AUTO) 2.8 % (0-6); LYMPHOCYTES # (AUTO) 0.7 X10'3 (1.1-4.8); LYMPHOCYTES % (AUTO) 11.1 % (21-51); MEAN CORPUSCULAR HEMOGLOBIN 28.1 PG (27.0-31.0); MEAN CORPUSCULAR HGB CONC 32.6 % (33.0-36.5); MEAN CORPUSCULAR VOLUME 86.1 FL (78-98); MEAN PLATELET VOLUME 7.5 FL (7.4-10.4); MONOCYTES # (AUTO) 0.5 X10'3 (0-0.9); MONOCYTES % (AUTO) 7.6 % (2-12); NEUTROPHILS # (AUTO) 4.9 X10'3 (1.8-7.7); NEUTROPHILS % (AUTO) 78.1 % (42-75); PLATELET COUNT 168 X10'3 (140-440); RED BLOOD COUNT 2.14 X10'6 (4.70-6.10); RED CELL DISTRIBUTION WIDTH 19.7 % (11.5-14.5); WHITE BLOOD COUNT 6.3 X10'3 (4.5-11.0)
[2017-08-29 08:19] LABS: HEMATOCRIT 18.4 % (42.0-52.0)
[2017-08-29 08:26] LABS: ANISOCYTOSIS 2+; NUCLEATED RED BLOOD CELLS 1 /100WBC (0-0); PLATELET ESTIMATE NORMAL; POLYCHROMASIA 2+; TOTAL CELLS COUNTED 100
[2017-08-29 08:28] LABS: ELLIPTOCYTES 1+; HYPOCHROMASIA 1+; TEAR DROP CELLS 1+
[2017-08-29] MEDS: propranolol 40mg tablet PO SCH (08:58)
[2017-08-29] MEDS: sodium ferric gluc complex inj 125 MG in normal saline 100ml IV soln 100 ML IV SCH (08:58)
[2017-08-29] MEDS ORDERED: folic acid 1mg tablet PO SCH (09:00)
[2017-08-29] MEDS ORDERED: epoetin 20,000 units/ml inj SQ ONE (12:30)
[2017-08-29 12:34] VITALS: BP 129/60
[2017-08-29] MEDS ORDERED: PANT-47 PO (13:45)
[2017-08-29] MEDS ORDERED: EPOE10003 SUBCUT (13:45)
[2017-08-29] MEDS ORDERED: FERR324T7 PO (13:45)
== END 2017-08-29 15:10 | disposition home health service (06) | DRG 377 ==
LOC: ER 17:50 → ED HOLD 23:50 → SUR 3N 08-24 01:20
PROVIDERS: ADMIT Emergency Medicine; ATTEND Internal Medicine
PROC: 0DJ08ZZ Inspection of Upper Intestinal Tract, Via Natural or Artificial Opening Endoscopic (ICD-10-PCS; principal; 2017-08-24)
PROC: CW2 Nuclear Medicine, Anatomical Regions, Tomographic (Tomo) Nuclear Medicine Imaging (ICD-10-PCS; 2017-08-24)
DX: K29.91 Gastroduodenitis, unspecified, with bleeding (principal); N17.0 Acute kidney failure with tubular necrosis; I13.0 Hypertensive heart and chronic kidney disease with heart failure and stage 1 through stage 4 chronic kidney disease, or unspecified chronic kidney disease; D50.0 Iron deficiency anemia secondary to blood loss (chronic); E78.5 Hyperlipidemia, unspecified; I25.10 Atherosclerotic heart disease of native coronary artery without angina pectoris; K44.9 Diaphragmatic hernia without obstruction or gangrene; K57.90 Diverticulosis of intestine, part unspecified, without perforation or abscess without bleeding; I50.9 Heart failure, unspecified; M19.90 Unspecified osteoarthritis, unspecified site; N28.1 Cyst of kidney, acquired; R91.1 Solitary pulmonary nodule; R25.1 Tremor, unspecified; N18.9 Chronic kidney disease, unspecified; N40.0 Benign prostatic hyperplasia without lower urinary tract symptoms; I25.2 Old myocardial infarction; Z95.0 Presence of cardiac pacemaker; Z95.1 Presence of aortocoronary bypass graft; Z85.038 Personal history of other malignant neoplasm of large intestine; Z86.010 Personal history of colon polyps; Z82.49 Family history of ischemic heart disease and other diseases of the circulatory system; Z82.3 Family history of stroke; Z84.89 Family history of other specified conditions
CPT/HCPCS: 36415; 70450; 71250; 74176; 78278; 80053; 81001; 82272; 82607; 82668; 82746; 83690; 83735; 85025; 85027; 85610; 85651; 87070; 96374; 97110; 97116; 97162; 97530; 99284; 99285; A4620; A9560; C9113; G0500; J0885; J1750; J2250; J2405; J2916; J3010; J3420; J3475; J3480; J3490; J7030

== ENCOUNTER 2017-09-26 21:52 | Inpatient (IN) | payer MEDICARE, MEDICAID ==
[~2017-09-26] VITALS: Ht 167.6 cm; Wt 77.2 kg
[~2017-09-26 21:52] MED LIST changes: -EPOE10003 SQ; +EPOE10003 SUBCUT; -PROP10TA10 PO; +PROP40TA72 PO
[2017-09-26 22:33] LABS: BASOPHILS % (AUTO) 0.4 % (0-1); EOSINOPHILS % (AUTO) 0.4 % (0-6); LYMPHOCYTES # (AUTO) 0.5 X10'3 (1.1-4.8); LYMPHOCYTES % (AUTO) 9.9 % (21-51); MEAN CORPUSCULAR HEMOGLOBIN 33.1 PG (27.0-31.0); MEAN CORPUSCULAR HGB CONC 35.8 % (33.0-36.5); MEAN CORPUSCULAR VOLUME 92.4 FL (78-98); MEAN PLATELET VOLUME 7.5 FL (7.4-10.4); MONOCYTES # (AUTO) 0.4 X10'3 (0-0.9); MONOCYTES % (AUTO) 6.5 % (2-12); NEUTROPHILS # (AUTO) 4.5 X10'3 (1.8-7.7); NEUTROPHILS % (AUTO) 82.8 % (42-75); PLATELET COUNT 118 X10'3 (140-440); RED BLOOD COUNT 1.68 X10'6 (4.70-6.10); RED CELL DISTRIBUTION WIDTH 22.7 % (11.5-14.5); WHITE BLOOD COUNT 5.5 X10'3 (4.5-11.0)
[2017-09-26 22:36] LABS: HEMOGLOBIN 5.6 g/dl (14.0-17.9)
[2017-09-26 22:37] LABS: HEMATOCRIT 15.5 % (42.0-52.0)
[2017-09-26 22:45] LABS: INR 1.3 INR; PARTIAL THROMBOPLASTIN TIME 33 SECONDS (22-32); PROTHROMBIN TIME 12.9 SECONDS (9.0-12.0)
[2017-09-26] MEDS ORDERED: normal saline 1000ML IV soln IV ONE (22:45)
[2017-09-26 22:50] LABS: ALANINE AMINOTRANSFERASE 22 U/L (12-78); ALBUMIN 2.8 G/DL (3.4-5.0); ALBUMIN/GLOBULIN RATIO 0.7 (1.1-1.5); ALKALINE PHOSPHATASE 282 IU/L (46-116); ANION GAP 12 (8-16); ASPARTATE AMINO TRANSFERASE 125 U/L (10-37); BILIRUBIN,TOTAL 0.6 MG/DL (0.1-1.0); BLOOD UREA NITROGEN 51 MG/DL (7-18); CALCIUM 9.1 MG/DL (8.5-10.1); CHLORIDE 101 MMOL/L (99-107); GLUCOSE 170 MG/DL (70-104); POTASSIUM 3.5 MMOL/L (3.5-5.1); SODIUM 139 MMOL/L (135-145); TOTAL CARBON DIOXIDE 26.3 MMOL/L (24-32); TOTAL PROTEIN 6.7 G/DL (6.4-8.2); eGFR 20 ML/MIN
[2017-09-26 22:59] LABS: ANISOCYTOSIS 3+; PLATELET ESTIMATE DECREASED
[2017-09-26 23:01] LABS: ELLIPTOCYTES 1+; HYPOCHROMASIA 2+; MICROCYTOSIS 2+; POLYCHROMASIA 1+; TEAR DROP CELLS 1+
[2017-09-26 23:07] LABS: CLARITY,URINE CLEAR (Clear); COLOR,URINE YELLOW (Yellow); GLUCOSE, URINE NEGATIVE (Neg); KETONES,URINE NEGATIVE (Neg); LEUKOCYTE ESTERASE ,URINE NEGATIVE (Neg); NITRITES, URINE NEGATIVE (Neg); OCCULT BLOOD,URINE NEGATIVE (Neg); PH,URINE 5.5 (4.8-8.0); PROTEIN,URINE 30 mg/dl (Neg); UROBILINOGEN,URINE 0.2 E.U/dL (0.2-1.0)
[2017-09-26 23:09] LABS: UA COLLECTION TYPE STRAIGHT CATH
[2017-09-26 23:14] LABS: AMORPHOUS URATES 2+; BACTERIA,URINE NONE SEEN /HPF (Neg); MUCUS STRANDS NONE SEEN /LPF (Neg); RBC,URINE NONE SEEN /HPF (0-2); SQUAMOUS EPITHELIAL CELL,UR NONE SEEN /LPF (FEW); WBC,URINE 0-4 /HPF (0-4)
[2017-09-27] MEDS ORDERED: sucralfate 1 gm tablet PO ONE
[2017-09-27] MEDS ORDERED: pantoprazole 40 MG vial IV ONE
[2017-09-27] MEDS ORDERED: FURO-150 PO (00:35)
[2017-09-27] MEDS ORDERED: IBUP-24 PO (00:35)
[2017-09-27] MEDS ORDERED: ASPI-1265 PO (00:35)
[2017-09-27] MEDS ORDERED: CHOL100046 PO (00:35)
[2017-09-27] MEDS ORDERED: ASCO500C15 PO (00:35)
[2017-09-27] MEDS ORDERED: normal saline 1000ml 1,000 ML IV SCH (02:49)
[2017-09-27] MEDS ORDERED: magnesium hydroxide 30ml (MOM) UD suspension PO PRN (02:50)
[2017-09-27] MEDS ORDERED: acetaminophen 325mg tablet PO PRN ×2 (02:50)
[2017-09-27] MEDS ORDERED: ondansetron/PF 4mg/2ml inj IV PRN (02:50)
[2017-09-27] MEDS ORDERED: mag hydrox/Alum hydrox/simeth 30ml oral suspension PO PRN (02:50)
[2017-09-27 03:49] VITALS: BP 129/47
== END 2017-09-27 03:49 | disposition short-term general hospital (02) | DRG 86 ==
LOC: ER 21:52 → ED HOLD 09-27 02:49 → CANBEDREQ 09-27 03:18
PROVIDERS: ADMIT Internal Medicine; ATTEND Internal Medicine
DX: S06.5X0A Traumatic subdural hemorrhage without loss of consciousness, initial encounter (principal); K92.2 Gastrointestinal hemorrhage, unspecified; E11.22 Type 2 diabetes mellitus with diabetic chronic kidney disease; I25.10 Atherosclerotic heart disease of native coronary artery without angina pectoris; D64.9 Anemia, unspecified; N18.9 Chronic kidney disease, unspecified; X58.XXXA Exposure to other specified factors, initial encounter; Z66 Do not resuscitate; I25.2 Old myocardial infarction; Z79.82 Long term (current) use of aspirin; Z79.899 Other long term (current) drug therapy; Z85.038 Personal history of other malignant neoplasm of large intestine; Z87.891 Personal history of nicotine dependence; Z95.1 Presence of aortocoronary bypass graft; Z82.3 Family history of stroke; Z82.49 Family history of ischemic heart disease and other diseases of the circulatory system; Y93.9 Activity, unspecified; Y92.89 Other specified places as the place of occurrence of the external cause; Y99.8 Other external cause status
CPT/HCPCS: 36415; 70450; 71045; 80053; 81001; 82948; 83605; 84145; 84484; 85025; 85610; 85730; 87040; 93005; 96374; 99285; A4353; C9113